=== PATIENT | male | born 1970 | race Caucasian/White ===

== ENCOUNTER 2017-06-01 20:47 | Emergency (ER) | payer OTHER ==
[~2017-06-01] VITALS: Ht 170.2 cm; Wt 60.0 kg
[2017-06-01 21:03] VITALS: Ht 170.2 cm; Wt 60.0 kg
[2017-06-01 21:57] LABS: BASOPHILS % 0.7 % (0.0-2.0); EOSINOPHILS % 0.2 % (0.0-7.0); HEMATOCRIT 40.2 % (42.0-52.0); HEMOGLOBIN 13.4 g/dl (14.0-18.0); LYMPHOCYTES # 2.4 10^3/ul (0.8-2.9); LYMPHOCYTES % 39.6 % (15.0-51.0); MEAN CORPUSCULAR HEMOGLOBIN 28.2 pg (29.0-33.0); MEAN CORPUSCULAR HGB CONC 33.3 g/dl (32.0-37.0); MEAN CORPUSCULAR VOLUME 84.5 fl (82.0-101.0); MEAN PLATELET VOLUME 9.3 fl (7.4-10.4); MONOCYTE # 0.8 10^3/ul (0.3-0.9); MONOCYTES % 13.3 % (0.0-11.0); PLATELET COUNT 244 10^3/UL (140-415); RED BLOOD COUNT 4.76 10^6/ul (4.70-6.10); RED CELL DISTRIBUTION WIDTH 12.8 % (11.5-14.5); WHITE BLOOD COUNT 6.1 10^3/ul (4.8-10.8)
[2017-06-01 22:07] LABS: ADD UMIC NO; UR ASCORBIC ACID NEGATIVE (NEGATIVE); UR BACTERIA FEW /HPF (NONE SEEN); UR BILIRUBIN (Dip) NEGATIVE (NEGATIVE); UR BLOOD (Dip) NEGATIVE (NEGATIVE); UR CLARITY SLIGHTLY CLOUDY (CLEAR); UR COLOR YELLOW (YELLOW); UR GLUCOSE (Dip) NEGATIVE (NEGATIVE); UR KETONES (Dip) TRACE mg/dL (NEGATIVE); UR LEUKOCYTE ESTERASE (Dip) NEGATIVE Leu/ul (NEGATIVE); UR MUCUS FEW /HPF (NONE SEEN); UR NITRITE (Dip) NEGATIVE (NEGATIVE); UR RBC 1 /HPF (0-5); UR TOTAL PROTEIN (Dip) NEGATIVE (NEGATIVE); UR UROBILINOGEN (Dip) 1+ mg/dL (NEGATIVE)
[2017-06-01 22:23] LABS: ALANINE AMINOTRANSFERASE 29 IU/L (13-69); ALBUMIN 3.9 g/dl (3.3-4.9); ALBUMIN/GLOBULIN RATIO 1.02; ALKALINE PHOSPHATASE 80 IU/L (42-121); ANION GAP 18 (8-16); ASPARTATE AMINO TRANSFERASE 29 IU/L (15-46); BILIRUBIN,INDIRECT 0.3 mg/dl (0-1.1); BILIRUBIN,TOTAL 0.3 mg/dl (0.2-1.3); BLOOD UREA NITROGEN 23 mg/dl (7-20); CALCIUM 8.7 mg/dl (8.4-10.2); CARBON DIOXIDE 21 mmol/L (21-31); CHLORIDE 104 mmol/L (97-110); CREATININE 1.01 mg/dl (0.61-1.24); GLUCOSE 123 mg/dl (70-220); POTASSIUM 3.6 mmol/L (3.5-5.1); SODIUM 139 mmol/L (135-144); TOTAL PROTEIN 7.7 g/dl (6.1-8.1)
[2017-06-01 22:26] LABS: BARBITURATES Negative (NEGATIVE); BENZODIAZEPINES Negative (NEGATIVE); CANNABINOIDS Negative (NEGATIVE); COCAINE Negative (NEGATIVE); OPIATES Negative (NEGATIVE)
[2017-06-01 22:28] LABS: ACETAMINOPHEN < 10.0 ug/ml (10.0-30.0); ETHANOL < 10.0 mg/dl; SALICYLATE < 1.0 mg/dl (5.0-30.0)
[2017-06-01 23:58] VITALS: TEMP 98.1
--- NOTE | 2017-06-02 00:15 | PSY ---
Date/Time of Note Date/Time of Note DATE: 06/02/17 TIME: 00:09 Psychiatric Subjective Eval Consent Pt consented to telemedicine: Yes Subjective Evaluation Patient location: emergency Chief Complaint: from home, depressed b/c he's being evicted. laid in the street Reason for consult: Mute History of present illness Pt is a 46 year old male who was brought in by ambulance. Per report, patient has been using meth and was evicted from his home today. He then went outisde, stretched out on the ground and refused to talk/open his eyes. Patient was found, paramedics called and patient brought to the ER. He has been medically cleared but refuses to speak. I gathered report, reviewed the records and attempted to engage with the patient. However, he would not open his eyes. He would not speak. Nurse attempted to assist with trying to rouse the patient; however, patient would not respond. Past psychiatric history Not clear. Report of depression and meth use. Family History Unknown Medical history HIV positive per report Allergies: Coded Allergies: Unknown: Unable to obtain (Unverified , 06/01/17) Substance Abuse Substance abuse history: Yes (Meth) Social History Level of education: Unknown DPA/Conservatorship: No Occupation/M[employer]: Unknown Psychiatric Objective Eval Mental Status Examination: Appearance: Poor Hygiene Eye Contact: None Psychomotor Activity: Other Behavior: Guarded Speech: Other AFFECT: Flat On 72 hour hold: No Insight: Impared Judgement: Impared Laboratory Results Laboratory Tests Test 06/01/17 21:15 White Blood Count 6.110^3/ul Red Blood Count 4.7610^6/ul Hemoglobin 13.4g/dl Hematocrit 40.2% Mean Corpuscular Volume 84.5fl Mean Corpuscular Hemoglobin 28.2pg Mean Corpuscular Hemoglobin Concent 33.3g/dl Red Cell Distribution Width 12.8% Platelet Count 21258^3/UL Mean Platelet Volume 9.3fl Neutrophils % 46.0% Lymphocytes % 39.6% Monocytes % 13.3% Eosinophils % 0.2% Basophils % 0.7% Nucleated Red Blood Cells % 0.0/100WBC Neutrophils # (Manual) 2.810^3/ul Lymphocytes # 2.410^3/ul Monocytes # 0.810^3/ul Eosinophils # 0.010^3/ul Basophils # 0.010^3/ul Nucleated Red Blood Cells # 0.010^3/ul Urine Color YELLOW Urine Clarity SLIGHTLY CLOUDY Urine pH 5.0 Urine Specific [place] 1.030 Urine Ketones TRACEmg/dL Urine Nitrite NEGATIVEmg/dL Urine Bilirubin NEGATIVEmg/dL Urine Urobilinogen 1+mg/dL Urine Leukocyte Esterase NEGATIVELeu/ul Urine Microscopic RBC 1/HPF Urine Microscopic WBC 2/HPF Urine Bacteria FEW/HPF Urine Mucus FEW/HPF Urine Hemoglobin NEGATIVEmg/dL Urine Glucose NEGATIVEmg/dL Urine Total Protein NEGATIVEmg/dl Sodium Level 139mmol/L Potassium Level 3.6mmol/L Chloride Level 104mmol/L Carbon Dioxide Level 21mmol/L Anion Gap 18 Blood Urea Nitrogen 23mg/dl Creatinine 1.01mg/dl Glucose Level 123mg/dl Calcium Level 8.7mg/dl Total Bilirubin 0.3mg/dl Direct Bilirubin 0.00mg/dl Indirect Bilirubin 0.3mg/dl Aspartate Amino Transf (AST/SGOT) 29IU/L Alanine Aminotransferase (ALT/SGPT) 29IU/L Alkaline Phosphatase 80IU/L Total Protein 7.7g/dl Albumin 3.9g/dl Globulin 3.80g/dl Albumin/Globulin Ratio 1.02 Salicylates Level < 1.0mg/dl Urine Opiates Screen Negative Acetaminophen Level < 10.0ug/ml Urine Barbiturates Negative Urine Amphetamines Screen POSITIVE Urine Benzodiazepines Screen Negative Urine Cocaine Screen Negative Urine Cannabinoids Negative Ethyl Alcohol Level < 10.0mg/dl Assessment and Plan Assessment/Diagnosis [place] I: Adjustment Disorder, Unspecified, Stimulant Use Disorder Recommendation/Plan Medication Management Consider providing ativan while in ER as this may help relax him and help him to start talking. Psychotherapy N/A Pt. Caregiver/Family Education N/A Follow-up/Disposition If patient does not participate, would assume that he is GD. While this appears volitional, cannot rule out major psychiatric illness precipitated by the stress. Transfer to inpatient psychiatry. [address]: [address] Hold (GD) CHARLEEN BE Jun 02, 2017 00:15
[2017-06-02 02:30] VITALS: BP 114/70; PULSE 74; RESP 16
--- NOTE | 2017-06-02 03:47 | PSY ---
Date/Time of Note Date/Time of Note DATE: 06/02/17 TIME: 01:44 Psychiatric Subjective Eval Subjective Evaluation Patient location: emergency Chief Complaint: from home, depressed b/c he's being evicted. laid in the street Reason for consult: Mute History of present illness This is a 46 year old single male who was brought into the ED yesterday, laying on the street, pretending that he was asleep. Allegedly, the patient's roommate called for an Ambulance as when the patient was given an eviction notice, he "went outside and laid down on the floor unresponsive. Once brought to the ED, he was selectively mute. His mother, Juliette, , said that he has been using methamphetamine lately. When I was asked to interview him he was alert and oriented to person, place and time. He said that he was asleep and did not recall how he got to the ED. He denied having any psychiatric complaint and denied having any suicidal or homicidal ideation, intent or plan. He denied that he was going to be evicted. Past psychiatric history He denied any prior psychiatric treatment Hospitalization: no Family History He denied any family history of mental illness. Medical history He said that he has been disabled since he had viral meningitis 13 years ago. Allergies: Coded Allergies: Unknown: Unable to obtain (Unverified , 06/01/17) Substance Abuse Substance use: other (He denied having a history of problrems with substance use. His urine tox was positive for amphetamine. ) Social History Marital status: single Level of education: Some college DPA/Conservatorship: No Occupation/Half-Way: disabled Psychiatric Objective Eval Review of Systems: Review of Systems: Applicable Constitutional: Normal Eyes: Normal ENT: Normal Neck: Normal Respiratory: Normal Chest/Breast: Normal Cardiovascular: Normal GI: Normal Genitourinary: Normal Skin: Normal Lymphatic: Normal Musculoskeletal: Normal Neurological: Normal Physical Examination: Physical Examination: Not Applicable Sleep: Adequate Energy: Adequate Interest: Adequate Mental Status Examination: Appearance: Groomed Eye Contact: Good Psychomotor Activity: Normal Behavior: Cooperative, Guarded Speech: Clear AFFECT: Appropriate Mood: Appropriate/Full Though Process: Linear Thought Content: Normal Suicidal: No Homicidal: No On 72 hour hold: Yes Orientation: x3 Cognition: Alert Insight: Intact Judgement: Intact Attention Span: Intact Laboratory Results Laboratory Tests Test 06/01/17 21:15 White Blood Count 6.110^3/ul Red Blood Count 4.7610^6/ul Hemoglobin 13.4g/dl Hematocrit 40.2% Mean Corpuscular Volume 84.5fl Mean Corpuscular Hemoglobin 28.2pg Mean Corpuscular Hemoglobin Concent 33.3g/dl Red Cell Distribution Width 12.8% Platelet Count 68341^3/UL Mean Platelet Volume 9.3fl Neutrophils % 46.0% Lymphocytes % 39.6% Monocytes % 13.3% Eosinophils % 0.2% Basophils % 0.7% Nucleated Red Blood Cells % 0.0/100WBC Neutrophils # (Manual) 2.810^3/ul Lymphocytes # 2.410^3/ul Monocytes # 0.810^3/ul Eosinophils # 0.010^3/ul Basophils # 0.010^3/ul Nucleated Red Blood Cells # 0.010^3/ul Urine Color YELLOW Urine Clarity SLIGHTLY CLOUDY Urine pH 5.0 Urine Specific [place] 1.030 Urine Ketones TRACEmg/dL Urine Nitrite NEGATIVEmg/dL Urine Bilirubin NEGATIVEmg/dL Urine Urobilinogen 1+mg/dL Urine Leukocyte Esterase NEGATIVELeu/ul Urine Microscopic RBC 1/HPF Urine Microscopic WBC 2/HPF Urine Bacteria FEW/HPF Urine Mucus FEW/HPF Urine Hemoglobin NEGATIVEmg/dL Urine Glucose NEGATIVEmg/dL Urine Total Protein NEGATIVEmg/dl Sodium Level 139mmol/L Potassium Level 3.6mmol/L Chloride Level 104mmol/L Carbon Dioxide Level 21mmol/L Anion Gap 18 Blood Urea Nitrogen 23mg/dl Creatinine 1.01mg/dl Glucose Level 123mg/dl Calcium Level 8.7mg/dl Total Bilirubin 0.3mg/dl Direct Bilirubin 0.00mg/dl Indirect Bilirubin 0.3mg/dl Aspartate Amino Transf (AST/SGOT) 29IU/L Alanine Aminotransferase (ALT/SGPT) 29IU/L Alkaline Phosphatase 80IU/L Total Protein 7.7g/dl Albumin 3.9g/dl Globulin 3.80g/dl Albumin/Globulin Ratio 1.02 Salicylates Level < 1.0mg/dl Urine Opiates Screen Negative Acetaminophen Level < 10.0ug/ml Urine Barbiturates Negative Urine Amphetamines Screen POSITIVE Urine Benzodiazepines Screen Negative Urine Cocaine Screen Negative Urine Cannabinoids Negative Ethyl Alcohol Level < 10.0mg/dl Assessment and Plan Assessment/Diagnosis [place] I: F43.21 Adjustment disorder with depressed mood. F51.20 Amphetamine dependence. [place] II: Deferred [place] III: S/P viral meningitis. [place] IV: Problems with housing [place] V: 50 Recommendation/Plan Medication Management No medications at this time. (He was not interested) Psychotherapy The the patient should be referred to drug treatment programs. Pt. Caregiver/Family Education With the patient's permission, have the mother notified that he has been cleared and is to be discharged. She may be able to assist in referring him for treatment. 5150 Recommendation: Release Hold (He no longer meets 5150 criteria. ) YINA SIDDIQI MD Jun 02, 2017 03:41
--- NOTE | 2017-06-02 06:16 | ERD ---
ER Documentation Chief Complaint Date/Time DATE: 06/02/17 TIME: 06:09 Chief Complaint from home, depressed b/c he's being evicted. laid in the street HPI This 46-year-old male presents emergency room with acute depression. He smoked methamphetamines and now is feeling very depressed he has recently been evicted he is not sure whether or not he wants to harm himself. He has no physical pain or physical symptoms. Denies medical problems. ROS All systems reviewed and are negative except as per history of present illness. Allergies Allergies: Coded Allergies: Unknown: Unable to obtain (Unverified , 06/01/17) PMhx/Soc Medical and Surgical Hx: Unable to obtain Hx Psychiatric Problems: Yes (UNK) Hx Miscellaneous Medical Probl: Yes (HIV) Hx Alcohol Use: No (unk) Hx Substance Use: No (unk) Hx Tobacco Use: No (unk) Smoking Status: Unknown if ever smoked Physical Exam Vitals Vital Signs Date Time Temp Pulse Resp B/P Pulse Ox O2 Delivery O2 Flow Rate FiO2 06/02/17 02:30 74 16 114/70 99 Room Air 06/01/17 23:58 98.1 85 18 105/68 97 Room Air 06/01/17 21:03 98.1 104 16 119/76 96 Physical Exam Const: [] No distress Head: Atraumatic Eyes: Normal Conjunctiva ENT: Normal External Ears, Nose and Mouth. Neck: Full range of motion..~ No meningismus. Resp: Clear to auscultation bilaterally Cardio: Regular Mild tachycardia, no murmurs Abd: Soft, non tender, non distended. Normal bowel sounds Skin: No petechiae or rashes Back: No midline or flank tenderness Ext: No cyanosis, or edema Neur: Awake and alert and oriented 3 Psych: Normal Mood and Affect Result Diagram: 06/01/17211406/01/172114 Results 24 hrs Laboratory Tests Test 06/01/17 21:15 White Blood Count 6.110^3/ul Red Blood Count 4.7610^6/ul Hemoglobin 13.4g/dl Hematocrit 40.2% Mean Corpuscular Volume 84.5fl Mean Corpuscular Hemoglobin 28.2pg Mean Corpuscular Hemoglobin Concent 33.3g/dl Red Cell Distribution Width 12.8% Platelet Count 52864^3/UL Mean Platelet Volume 9.3fl Neutrophils % 46.0% Lymphocytes % 39.6% Monocytes % 13.3% Eosinophils % 0.2% Basophils % 0.7% Nucleated Red Blood Cells % 0.0/100WBC Neutrophils # (Manual) 2.810^3/ul Lymphocytes # 2.410^3/ul Monocytes # 0.810^3/ul Eosinophils # 0.010^3/ul Basophils # 0.010^3/ul Nucleated Red Blood Cells # 0.010^3/ul Urine Color YELLOW Urine Clarity SLIGHTLY CLOUDY Urine pH 5.0 Urine Specific [place] 1.030 Urine Ketones TRACEmg/dL Urine Nitrite NEGATIVEmg/dL Urine Bilirubin NEGATIVEmg/dL Urine Urobilinogen 1+mg/dL Urine Leukocyte Esterase NEGATIVELeu/ul Urine Microscopic RBC 1/HPF Urine Microscopic WBC 2/HPF Urine Bacteria FEW/HPF Urine Mucus FEW/HPF Urine Hemoglobin NEGATIVEmg/dL Urine Glucose NEGATIVEmg/dL Urine Total Protein NEGATIVEmg/dl Sodium Level 139mmol/L Potassium Level 3.6mmol/L Chloride Level 104mmol/L Carbon Dioxide Level 21mmol/L Anion Gap 18 Blood Urea Nitrogen 23mg/dl Creatinine 1.01mg/dl Glucose Level 123mg/dl Calcium Level 8.7mg/dl Total Bilirubin 0.3mg/dl Direct Bilirubin 0.00mg/dl Indirect Bilirubin 0.3mg/dl Aspartate Amino Transf (AST/SGOT) 29IU/L Alanine Aminotransferase (ALT/SGPT) 29IU/L Alkaline Phosphatase 80IU/L Total Protein 7.7g/dl Albumin 3.9g/dl Globulin 3.80g/dl Albumin/Globulin Ratio 1.02 Salicylates Level < 1.0mg/dl Urine Opiates Screen Negative Acetaminophen Level < 10.0ug/ml Urine Barbiturates Negative Urine Amphetamines Screen POSITIVE Urine Benzodiazepines Screen Negative Urine Cocaine Screen Negative Urine Cannabinoids Negative Ethyl Alcohol Level < 10.0mg/dl Procedures/MDM Methamphetamine intoxication causing feelings of depression. As of the patient' s methamphetamines and worn off he felt much better. He was then ability by tele-psychiatry who did not think the patient was holdable. I agree with her assessment. He is very common reasonable at this time still has no medical complaints. No significant laboratory abnormalities requiring admission or treatment. I counseled him at the bedside for more than 3 minutes on the dangers of methamphetamine use. Departure Diagnosis: Primary Impression: Methamphetamine abuse Condition: Stable Patient Instructions: Understanding Methamphetamine Abuse and Addiction Referrals: [facility] YOU HAVE RECEIVED A MEDICAL SCREENING EXAM AND THE RESULTS INDICATE THAT YOU DO NOT HAVE A CONDITION THAT REQUIRES URGENT TREATMENT IN THE EMERGENCY DEPARTMENT. FURTHER EVALUATION AND TREATMENT OF YOUR CONDITION CAN WAIT UNTIL YOU ARE SEEN IN YOUR DOCTORS OFFICE WITHIN THE NEXT 1-2 DAYS. IT IS YOUR RESPONSIBILITY TO MAKE AN APPOINTMENT FOR FOLOW-UP CARE. IF YOU HAVE A PRIMARY DOCTOR --you should call your primary doctor and schedule an appointment IF YOU DO NOT HAVE A PRIMARY DOCTOR YOU CAN CALL OUR PHYSICIAN REFERRAL HOTLINE AT IF YOU CAN NOT AFFORD TO SEE A PHYSICIAN YOU CAN CHOSE FROM THE FOLLOWING [facility] CL[facility]ICS [facility] [address] [facility]. [facility] [address] [facility] [facility] [address] [facility] [facility] [address] [facility]. [facility] [address] [facility]. [facility]. [address] Additional Instructions: Call your primary care doctor TOMORROW for an appointment during the next 1-2 days.See the doctor sooner or return here if your condition worsens before your appointment time. AUTUMN VARELA DO Jun 02, 2017 06:16
== END 2017-06-02 12:53 | disposition home or self-care (01) ==
LOC: E/R 20:47
DX: F15.10 Other stimulant abuse, uncomplicated (principal)
CPT/HCPCS: 36415; 80053; 80306; 80307; 81001; 85025; Z7502; 81003; 99284